=== PATIENT | female | born 1975 | race Caucasian/White ===

== ENCOUNTER 2018-08-08 09:58 | Outpatient (CLI) | payer OTHER ==
--- NOTE | 2018-08-08 11:55 | MRI Report ---
Reason: CERVICALGIA Procedure Date: 08/08/2018 Accession Number: [id number] / [id number] Procedure: MRI - Cervical Spine W/O CPT Code: FULL RESULT: EXAM: MRI CERVICAL SPINE WITHOUT CONTRAST EXAM DATE: 08/08/2018 10:58 AM. CLINICAL HISTORY: CERVICALGIA. COMPARISONS: None. TECHNIQUE: Multiplanar, multisequence T1-weighted and fluid-sensitive sequences of the cervical spine without contrast. Other: None. Findings: Relevant images are indicated (image number, series number). Limited evaluation posterior cranial fossa contents are negative. No abnormal cervical/upper thoracic cord signal. There are no suspicious marrow lesions. Multilevel cervical spondylosis present. Normal expected partly visualized vascular flow voids of the bilateral vertebral arteries, left side dominant. No cervical paraspinal mass or collection. Surrounding skeletal muscle unremarkable. Thyroid not enlarged. C1-C2, C2-C3, C3-C4: Mild disk desiccation but no significant canal stenosis or neural foraminal narrowing. C4-C5: Mild disk desiccation, small posterior disk bulge. No significant canal stenosis or neural foramina narrowing. C5-C6: Mild disk desiccation without canal stenosis or neural foramina narrowing. C6-C7: Mild disk desiccation, minimal posterior disk bulge, no canal stenosis or neural foramina narrowing. C7-T1 through partly seen T3-T4 are unremarkable. Impressions: 1. Only mild multilevel cervical spondylosis as detailed without significant canal stenosis or neural foraminal narrowing to account for specific cervical radiculopathy. No abnormal cervical cord signal. [facility]
== END 2018-08-08 09:59 | disposition home or self-care (01) ==
LOC: DI 09:58
PROVIDERS: ATTEND Family Medicine
DX: M47.812 Spondylosis without myelopathy or radiculopathy, cervical region (principal)
CPT/HCPCS: 72141

== ENCOUNTER 2023-10-06 09:00 | Outpatient (CLI) | payer OTHER ==
--- NOTE | 2023-10-06 12:56 | MRI Report ---
PROCEDURE: Hip LT WO INDICATIONS: L HIP PAIN TECHNIQUE: Noncontrast coronal T1 spin echo and STIR through the bony pelvis. Coronal and axial T2 fast spin ec ho with fat saturation, sagittal T1 spin echo, and oblique axial T2 fast spin echo with fat saturatio n through the hip. COMPARISON: None. FINDINGS: Image quality: Excellent. Bones and joints: Curvilinear geographic low T1/T2 signal intensity within the left superomedial femo ral head is present, spanning roughly 25 mm transverse, indicating avascular necrosis. No evidence of subchondral collapse is present. 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 The visualized lower lumbar spine appears normally aligned. Tendons: The gluteus medius and minimus tendons appear intact, without associated muscle atrophy. T he iliopsoas tendon appears intact, without adjacent bursal fluid collections. The origin of the ham string tendon is intact at the ischial tuberosity. Labrum and cartilage: The acetabular labrum appears intact in the absence of intra-articular contras t. Cartilage surface of the femoral head appears of normal thickness. The alpha angle of the femur is within normal limits at less than 55 degrees. Soft tissues: Visualized muscles demonstrate normal bulk and internal signal. The proximal sciatic neurovascular bundle appears normal adjacent to the hamstring tendons. No free pelvic fluid. Bladde r wall thickness is normal. Genitourinary structures and bowel loops appear normal where visualized. IMPRESSION: 1. Left femoral head avascular necrosis. 2. Low-grade cartilaginous lesion within the right proximal femur as above. Reviewed by: Eduard Culver MD on 10/06/2023 12:55 PM PDT Approved by: Eduard Culver MD on 10/06/2023 12:55 PM PDT Station ID: [id number]
== END 2023-10-06 09:01 | disposition home or self-care (01) ==
LOC: DI 09:00
PROVIDERS: ATTEND Nurse Practitioner Family
DX: M87.9 Osteonecrosis, unspecified (principal); M94.8X5 Other specified disorders of cartilage, thigh